=== PATIENT | male | born 1925 | race Caucasian/White ===

== ENCOUNTER → 2016-11-29 | Outpatient (CLI) | payer OTHER, BC ==
[~2016-11-29] MED LIST: ALDACTONE25 MG PO; ALTACE PO; ALTACE5 M1 PO; ASPIR 8181 MG PO; ASPIRIN325 PO; COLACE 100 MG100 MG PO; COREG PO; COREG3.125 MG PO; COUMADIN 3 MG TA3 MG PO; GLUCOSAMINE CH1 EAC7 PO; IRON325 PO; MEDROLDOSEPACK PO; NOHOMEMEDICATIONS; NORCO 7.5-3251 EACH PO; OXYCODONE HCL5 M1 PO; PENICILLIN VK500 MG PO; PLAVIX 75 MG TA75 MG PO; PRILOSEC 20 MG20 MG PO; ZESTRIL2.5 MG PO; ZOCOR 20 MG TAB20 M1 PO; ZOCOR40 MG PO
--- NOTE | ~2016-11-29 | 2DMMODE ---
[facility] [address] [email or web address] [address] 2 D/M-MODE ECHOCARDIOGRAM Name: ISA FERNANDEZ Room #: REG [facility]#: [id number] Admission: 11/29/16 Attend Phys: Darin Gauthier MD Discharge: Date of : [birth year] Date of Service: 11/29/[address] [facility] Report #: [id number] THIS REPORT FOR: //name// APPROVED REPORT Study performed: 11/29/2016 08:39:17 EXAM: Comprehensive 2D, Doppler, and color-flow Echocardiogram Patient Location: Out-Patient Room #: Echo lab Status: routine BSA: 2.08 HR: 58 bpm BP: 114/64 mmHg Other Information Study Quality: Good Indications CAD Hypertension/HDD HLP. 2D Dimensions RVDd: 42.48 mm LVEF(%): 31.39 (>50%) IVSd: 8.76 (7-11mm) LVOT Diam: 23.98 (18-24mm) LVDd: 55.83 mm PWd: 7.88 (7-11mm) Ascending Ao: 33.70 (22-36mm) LVDs: 47.45 (25-40mm) Aortic Root: 37.34 mm IVC: 18.00 mm Carranza's LVEF: 31.39 % Volumes Left Atrial Volume (Systole) Single Plane 4CH: 58.98 mL Single Plane 2CH: 74.95 mL LA ESV Index: 36.00 mL/m2 Aortic Valve AoV Peak Rashad.: 1.21 m/s AO Peak Gr.: 5.81 mmHg LVOT Max P.79 mmHg LVOT Max V: 0.97 m/s CHANDLER Vmax: 3.65 cm2 AI Vmax: 4.64 m/s AI Saunders: 1.66 m/s2 AI PHT: 810.36 ms [facility] [email or web address] [address] 2 D/M-MODE ECHOCARDIOGRAM Name: ISA FERNANDEZ Room #: [facility].#: [id number] Admission: 11/29/16 Attend Phys: Darin Gauthier MD Discharge: Date of : [birth year] Date of Service: 11/29/[address] [facility] Report #: [id number] Mitral Valve E/A Ratio: 1.2 MV Decel. Time: 214.13 ms MV E Max Rashad.: 0.65 m/s MV A Rashad.: 0.56 m/s MV PHT: 62.10 ms IVRT: 258.36 ms Pulmonary Valve PV Peak Rashad.: 0.87 m/s PV Peak Gr.: 3.02 mmHg KY End Vmax: 0.92 m/s Pulmonary Vein P Vein S: 0.60 m/s P Vein A: 0.19 m/s P Vein D: 0.39 m/s P Vein A Dur.: 147.6 msec P Vein S/D Ratio: 1.54 Tricuspid Valve RAP Estimate: 5.00 mmHg Left Ventricle Left ventricle is at the upper limits of normal. There is moderate global hypokinesis of the left ventricle. There is moderate hypokinesis in the inferior wall. There is normal left ventricular wall thickness. Left ventricular systolic function is moderate to severely decreased. LVEF is 30-35%. Grade II - pseudonormal filling dynamics. Right Ventricle Right ventricle is at the upper limits of normal. The right ventricular systolic function is normal. Atria Left atrium is dilated. Right atrium is dilated. Aortic Valve The aortic valve is normal in structure. Aortic valve is calcified. Mild aortic regurgitation. There is no aortic valvular stenosis. Mitral Valve The mitral valve is normal in structure. Mild mitral regurgitation. No evidence of mitral valve stenosis. Tricuspid Valve [facility] [address] [place] [address] 2 D/M-MODE ECHOCARDIOGRAM Name: ISA FERNANDEZ Room #: REG [facility]#: [id number] Admission: 11/29/16 Attend Phys: Darin Gauthier MD Discharge: Date of : [birth year] Date of Service: 11/29/[address] [facility] Report #: [id number] The tricuspid valve is normal in structure. There is no tricuspid valve regurgitation noted. Pulmonic Valve The pulmonary valve is normal in structure. Mild pulmonic regurgitation. Great Vessels The aortic root is normal in size. IVC is normal in size and collapses >50% with inspiration. Pericardium There is no pericardial effusion. <Conclusion> Left ventricle is at the upper limits of normal. Left ventricular systolic function is moderate to severely decreased. Grade II - pseudonormal filling dynamics. Left atrium is dilated. Right atrium is dilated. Mild aortic regurgitation. Mild mitral regurgitation. <ELECTRONICALLY SIGNED> By: Darin Gauthier MD 11/29/16 1007 1007 1007 Darin Gauthier MD /INF
== END ==
LOC: CV 08:30
DX: I10 Essential (primary) hypertension (principal); I25.10 Atherosclerotic heart disease of native coronary artery without angina pectoris; I34.0 Nonrheumatic mitral (valve) insufficiency; E78.5 Hyperlipidemia, unspecified

== ENCOUNTER 2016-12-06 06:47 | Observation (INO) | payer OTHER, BC ==
[~2016-12-06] VITALS: Ht 182.9 cm; Wt 88.9 kg
--- NOTE | ~2016-12-06 | P ---
[facility] [place] [address] PROCEDURE REPORT Name: ISA FERANNDEZ Room #: 219-P [facility] Gilda MVinh#: [id number] Admission: 12/06/16 Attend Phys: Jostin Don MD Discharge: 12/07/16 Date of : [birth year] Report #: [id number] THIS REPORT FOR: //name// CC: Jostin Hill PROCEDURE: ICD implantation. PREOPERATIVE DIAGNOSIS: Ischemic cardiomyopathy. POSTOPERATIVE DIAGNOSIS: Ischemic cardiomyopathy. HISTORY: The patient is an 89-year-old with history of ischemic cardiomyopathy, has been on optimal medical therapy and his EF is less than 35%. He has class 2 heart failure symptoms, he is here for ICD implantation. ANESTHESIA: The patient underwent MAC anesthesia with no anesthesia related complications. DESCRIPTION OF PROCEDURE: The patient underwent informed consent. We discussed the details of the procedure including the risks, which include but not limited to bleeding, infection, vascular damage, cardiac perforation and pneumothorax. He understood these risks and is willing to proceed. As such, he was brought to the EP laboratory in fasting and sedated state, prepped and draped in a sterile fashion and underwent a venogram showing patency of left axillary vein and received IV antibiotics. Next, 20 mL of lidocaine was injected below the level of left clavicle. Incision was made, pocket was created over the prepectoral fascia and access was obtained once the left axillary vein using the extrathoracic approach with the sheath positioned using the modified Seldinger technique. Next, under fluoroscopy lead was positioned in the right ventricular apex with adequate pacing and sensing thresholds, lead was sutured to the prepectoral fascia and the device was connected and found to be functioning normally. The pocket was irrigated with vancomycin and the pocket was closed in 3 layers and surgical glue was placed to the outer skin layer. The patient awoke neurologically and hemodynamically intact with no complications and no significant bleeding. The implanted device was [employer] model #LW856764J, serial #[id number]. The lead was [employer], model #7122Q, 65 cm, serial #[id number]. This lead demonstrated an R-wave of 11 millivolts, pacing impedance of 560 ohms, pacing threshold 0.5 volts at 0.5 milliseconds. The device was programmed to the VVI 40 mode. The VT zone was set at greater than 220 beats per minute with ATP while charging followed by max output shocks, the VT zone was set at 180 beats per minute with 3 rounds of bursts followed by 3 rounds of ramp followed by max output shocks. CONCLUSIONS: [facility] [address] [place] [address] PROCEDURE REPORT Name: ISA FERNANDEZ Room #: 219-[facility].Rhonda#: [id number] Admission: 12/06/16 Attend Phys: Jostin Don MD Discharge: 12/07/16 Date of : [birth year] Report #: [id number] 1. Successful ICD implantation. 2. Satisfactory ventricular pacing and sensing thresholds. <ELECTRONICALLY SIGNED> By: Jostin Don MD 12/09/16 1105 0938 [id number] Jostin Don MD /nt
--- NOTE | ~2016-12-06 | D ---
[facility] [place] [address] DISCHARGE SUMMARY Name: ISA FERNANDEZ Room #: 219-P [facility] Gilda Mahoney#: [id number] Admission: 12/06/16 Attend Phys: Jostin Don MD Discharge: 12/07/16 Date of : [birth year] Report #: [id number] THIS REPORT FOR: //name// CC: Jostin Hill DISCHARGE DIAGNOSIS: Ischemic cardiomyopathy. PROCEDURES PERFORMED: ICD implantation. HISTORY OF PRESENT ILLNESS: The patient is an 89-year-old with history of ischemic cardiomyopathy, who has been on optimal medical therapy and his EF remains less than 35%. He has class II heart failure symptoms. He was here for ICD implantation for primary prevention of sudden cardiac . The procedure was straightforward without incident. HOSPITAL COURSE: The patient was monitored overnight. Chest x-ray the following day showed stable lead position with no pneumothorax. Device interrogation showed normal device function. The following day, he was doing well without any chest pain or shortness of breath. PHYSICAL EXAMINATION: VITAL SIGNS: Stable on physical. GENERAL: No acute distress. CARDIOVASCULAR: Regular rate and rhythm. LUNGS: Clear to auscultation bilaterally. ABDOMEN: Soft, nontender, nondistended. EXTREMITIES: No clubbing, cyanosis or edema. His incision was healing nicely with no hematoma or bruising. As such, he was deemed stable for discharge home. Discharge instructions were reviewed and followup appointment scheduled for 7-10 days. <ELECTRONICALLY SIGNED> By: Jostin Don MD 12/09/16 1105 0831 0906 Jostin Don MD /nt
[2016-12-06 07:29] LABS: ABSOLUTE NEUTROPHILS 3.2 thou/uL (1.4-8.2); BASOPHILS 0.4 % (0.0-2.0); EOSINOPHILS 2.7 % (0.0-3.0); HEMATOCRIT 39.5 % (42.0-52.0); LYMPHOCYTES 33.7 % (24.0-44.0); MCH 28.8 pg (26.0-34.0); MCHC 32.9 g/dL (28.0-37.0); MCV 87.5 fL (80.0-100.0); MONOCYTES 10.2 % (1.0-8.0); PLATELET COUNT 156 thou/uL (150-400); RBC 4.52 mil/uL (4.50-6.00); RDW 14.8 % (10.5-14.5); WBC 6.1 thou/uL (4.0-11.0)
[2016-12-06 07:30] LABS: MANUAL DIFF NO
[2016-12-06 07:45] LABS: CALCIUM 8.9 mg/dL (8.5-10.1); POTASSIUM 3.7 mmol/L (3.5-5.1)
[2016-12-06 07:46] LABS: INR 1.1; PROTIME 10.4 Seconds (9.3-11.4)
[2016-12-06 07:50] LABS: ALBUMIN 3.6 g/dL (3.4-5.0); TOTAL BILIRUBIN 0.6 mg/dL (<0.1-1.0); TOTAL PROTEIN 7.2 g/dL (6.4-8.2)
[2016-12-06 11:11] VITALS: BP 141/71
[2016-12-06 12:30] VITALS: BP 124/69
[2016-12-06 20:28] VITALS: BP 104/59
[2016-12-07 00:02] VITALS: BP 106/55
[2016-12-07 04:50] VITALS: BP 105/60
[2016-12-07 08:38] VITALS: BP 134/76
[2016-12-07 09:08] VITALS: BP 134/76
== END 2016-12-07 13:26 | disposition home or self-care (01) ==
LOC: CATH 06:47 → 2N 10:50 → CATH 12:40 → 2N 12-07 13:26
PROVIDERS: Internal Medicine Cardiovascular Disease
DX: I25.5 Ischemic cardiomyopathy (principal); I25.10 Atherosclerotic heart disease of native coronary artery without angina pectoris; I10 Essential (primary) hypertension; E78.5 Hyperlipidemia, unspecified; R00.1 Bradycardia, unspecified

== ENCOUNTER → 2017-02-28 | Outpatient (CLI) | payer OTHER, BC | LOC: CAT 06:42 | DX: S72.8X2A Other fracture of left femur, initial encounter for closed fracture (principal); Z47.1 Aftercare following joint replacement surgery; X58.XXXA Exposure to other specified factors, initial encounter; Y93.89 Activity, other specified; Y92.89 Other specified places as the place of occurrence of the external cause; Y99.8 Other external cause status ==

== ENCOUNTER 2017-03-15 05:24 | Inpatient (IN) | payer OTHER, BC ==
[2017-03-09 13:21] LABS: HEMATOCRIT 38.2 % (42.0-52.0); HEMOGLOBIN 12.3 gm/dL (14.0-18.0); MCHC 32.3 g/dL (28.0-37.0); MCV 86.6 fL (80.0-100.0); RBC 4.41 mil/uL (4.50-6.00); RDW 14.6 % (10.5-14.5); WBC 9.1 thou/uL (4.0-11.0)
[2017-03-09 13:27] LABS: URINE BILIRUBIN NEGATIVE (Negative); URINE BLOOD TRACE (Negative); URINE COLOR YELLOW; URINE GLUCOSE-RANDOM* NEGATIVE (Negative); URINE KETONES NEGATIVE (Negative); URINE LEUKOCYTES-REFLEX NEGATIVE (Negative); URINE PROTEIN (DIPSTICK) NEGATIVE (Negative); URINE UROBILINOGEN 0.2 E.U./dl (0.2-1.0)
[2017-03-09 13:29] LABS: ALBUMIN 3.7 g/dL (3.4-5.0); CREATININE 0.9 mg/dL (0.7-1.3); POTASSIUM 4.3 mmol/L (3.5-5.1)
[2017-03-09 13:34] LABS: INR 1.1; PROTIME 10.8 Seconds (9.3-11.4)
[2017-03-15] VITALS (8 sets, daily range): BP systolic 82–114; BP diastolic 33–71
[~2017-03-15] VITALS: Ht 182.9 cm; Wt 86.2 kg
--- NOTE | ~2017-03-15 | O ---
[facility] [place] [address] OPERATIVE REPORT Name: ISA FERNANDEZ Room #: 416-P ADM IN M.R.#: [id number] Admission: 03/15/17 Attend Phys: Ramy Hoover MD Discharge: Date of : [birth year] Report #: [id number] THIS REPORT FOR: //name// CC: Dagoberto Hoover DATE OF SERVICE: 03/15/2017 PREOPERATIVE DIAGNOSIS: Left periprosthetic proximal femur fracture including the lesser trochanter. POSTOPERATIVE DIAGNOSES: 1. Left periprosthetic proximal femur fracture including the lesser trochanter. 2. Intraoperative greater trochanteric fracture. PROCEDURE: 1. Revision left total hip arthroplasty of the femoral stem only. 2. Open reduction and internal fixation left greater and lesser trochanter fractures. SURGEON: Ramy Hoover MD. DISEASE INTERVENTION SPECIALIST: Rosibel Mao PA-C. ANESTHESIA: General endotracheal. INDICATION FOR DISEASE INTERVENTION SPECIALIST: Throughout the case extensive retraction and manipulation of the hip was required and this was afforded to me by my boilermaker's assistant. IMPLANTS: [employer] size 18 x 240 Redapt press fit stem, high offset with a size 32+0 head and a size 5 standard Accord trochanteric sales executive insurance plate with 4 cerclage cables. ESTIMATED BLOOD LOSS: 250 mL. COMPLICATIONS: None. SPECIMENS: None. CONDITION UPON LEAVING THE OPERATING ROOM: Stable. INDICATIONS FOR PROCEDURE: The patient is an 89-year-old gentleman who fell on his left hip and sustained a left periprosthetic proximal femur fracture around a total hip arthroplasty. This fracture mainly involved the lesser trochanter and a CT scan of this was performed showing there to be significant widening of [facility] [address] [place] [address] OPERATIVE REPORT Name: ISA FERNANDEZ Room #: 416-P ADM IN M.R.#: [id number] Admission: 03/15/17 Attend Phys: Ramy Hoover MD Discharge: Date of : [birth year] Report #: [id number] the fracture site as well as instability of the stem. After discussion with him and his family, they elected for revision total hip arthroplasty to include the femur only and cerclage cable. DESCRIPTION OF PROCEDURE: Risks, benefits, alternatives, complications were discussed in detail with the patient including but not limited to risk of anesthesia, risk of damage to nerves or blood vessels, risk for infection, bleeding, risk for leg length discrepancy, instability and need for reoperation. Informed consent was obtained from the patient. The left hip was appropriately marked in the preoperative holding area. IV Ancef was given for preoperative antibiotics. He was brought to the operating room and placed in supine position on operating room table. General endotracheal anesthesia was induced without complication. He was then placed in the right lateral decubitus position with left hip uppermost. Left hip and lower extremity were prepped and draped in normal sterile fashion. Timeout was performed properly identifying the patient and procedure as well as the instrumentation, all in the operating in agreement. The previous scar was used and this was opened with a 10 blade. Dissection was taken down to the fascia with Bovie cautery and deep flaps were developed anteriorly and posteriorly with Richey elevator. Fresh 10 blade was used to make a fascial incision and this was taken proximally and distally with curved Diaz scissors. The posterior tissues were then taken off the proximal femur subperiosteally with Bovie cautery and down to the hip joint itself. Deep retractors were placed and capsule around the hip joint was removed with Bovie cautery. The hip was then dislocated and the femoral head was easily removed. Dissection around the proximal femur was performed with Bovie cautery and the stem was obviously loose. A stem removal tool was then placed on the neck and the stem was back slapped out. While removing the stem, the greater trochanter was fractured off secondary to significant overgrowth of the greater trochanter. After the stem was removed, the greater trochanteric fracture was fixed with a size 5 standard Accord cable sales executive insurance plate with 4 cerclage cables, which easily fixed the greater trochanteric fracture as well as the initial lesser trochanter fracture. After reestablishing the continuity of the femur, this was then sequentially reamed up to a size 18 for a Redapt stem. A trial stem was then placed and this was then trialed with +0, 32 head as well as a -3, 32 head. Intraoperative x-ray was then taken to verify that there was adequate purchase of the stem beyond the fracture as well as reduction of the joint. After this, the trial components were removed. Bony ends were thoroughly irrigated with normal saline and a final size 18 x 240 Redapt stem was seated. This was then trialed with a 32+0 head and a 32-3 head. It was felt that a 32+0 head had better fit and stability. A final size 32+0 head was then placed. The hip was reduced, taken through range of motion, found to be stable, found to have a long leg length on the left compared to the right by about 2 cm, but it was felt that this was acceptable in order to gain stability of the hip joint. After this, a periarticular injection consisting of morphine, ropivacaine, epinephrine and Toradol was placed around the hip. A gram of vancomycin was placed deep in the joint. There really was no posterior capsule to close and so that was left [address] [place] [address] OPERATIVE REPORT Name: JIMISA SARITA Room #: 416-P [facility] IN M.R.#: [id number] Admission: 03/15/17 Attend Phys: Ramy Hoover MD Discharge: Date of : [birth year] Report #: [id number] open. Fascia was closed with 0 Vicryl, skin was closed with 2-0 Vicryl, skin staple and a DREEK dressing was applied. The patient tolerated this procedure well and went to recovery room under care of Anesthesia postoperatively. <ELECTRONICALLY SIGNED> By: Ramy Hoover MD 03/17/17 1013 1347 1411 Ramy Hoover MD /nt
--- NOTE | ~2017-03-15 | HC ---
[facility] [place] [address] CONSULTATION Name: ISA FERNANDEZ Room #: 416-P [facility] IN M.R.#: [id number] Admission: 03/15/17 Attend Phys: Ramy Hoover MD Discharge: 03/18/17 Date of : [birth year] Report #: [id number] THIS REPORT FOR: //name// CC: Dagoberto Hoover DATE OF SERVICE: 03/17/2017 HISTORY OF PRESENT ILLNESS: The patient is an 89-year-old white male with a prior history of a left total hip arthroplasty who sustained a left periprosthetic fracture. The patient underwent revision of left total hip arthroplasty with ORIF. He had had a lesser and greater trochanteric fracture and underwent ORIF of the left lesser and greater trochanteric fractures on 03/15/2017. Postoperatively, he has had some issues with hypotension with close monitoring and also has had anemia with hemoglobin from 12.9 down to 7.5. He is currently being transfused. He is limited to 25 pounds weightbearing left lower extremity. We are seeing him in rehabilitation medicine consultation. PAST MEDICAL HISTORY: Does include ischemic cardiomyopathy, status post ICD, 11/25/2016, history of hypertension, acute renal insufficiency. He has had a prior upper GI bleed with noted stress ulcers, thought to be complicated by Coumadin back in 08/2010. MEDICATIONS: Please see the full medication listing. ALLERGIES: No known drug allergies. SOCIAL HISTORY: Lives independently in a house, 2 steps in. He is . He does have a Life Alert. He does have an involved daughter and son. REVIEW OF SYSTEMS: Did not offer any current complaints of chest pain, shortness of breath or abdominal discomfort. He has some hip pain as expected. No focal extremity pain complaints. PHYSICAL EXAMINATION: GENERAL: He is a pleasant 89-year-old white male in no obvious distress. He is pleasant, alert. VITAL SIGNS: Last recorded temperature is 99.3, pulse 91, respirations 18, blood pressure 93/37, he has been down as low as 80/43 and 79/34. HEENT: Appeared to be benign. EXTREMITIES: Skinning blood through the right forearm. No obvious focal weakness of that right upper extremity with limited testing. Left upper extremity without focal weakness. In his lower extremities, there is no calf swelling. He favors moving that left hip as expected. He can dorsiflex the left ankle, had probably a grade 4-/5. Right lower extremity strength is 4-/5. Tone is intact. He is max assist with sit to stand and is ambulating mod assist [address] [address] CONSULTATION Name: ISA FERNANDEZ Room #: [address] [place] [address] IN M.R.#: [id number] Admission: 03/15/17 Attend Phys: Ramy Hoover MD Discharge: 03/18/17 Date of : [birth year] Report #: [id number] with a front-wheeled walker 1 foot. He is 25 pounds weightbearing. ASSESSMENT: An 89-year-old white male with the following problems: 1. Left periprosthetic fracture with lesser trochanter and greater trochanteric fracture status post revision left total hip arthroplasty with ORIF of the trochanteric fractures, 03/15/2017. 2. Hypotension with monitoring of low blood pressures. 3. Anemia postoperatively. Hemoglobin down to 7.5 with transfusion. 4. Functional mobility and ADL deficits. 5. Ischemic cardiomyopathy with prior ICD. 6. Hypertension. 7. Acute renal insufficiency. 8. Prior history of upper GI bleed with ulcer disease. PLAN: The patient is a candidate for an acute in-hospital inpatient rehabilitation stay. From a preadmission screening perspective: 1. Prior level of function is well delineated above. 2. Expect level of improvement would be for the patient to improve with basic transfers and mobility issues within his limited weightbearing to become modified independent at a wheelchair/walker level. We would anticipate length of stay of probably 2-3 weeks. 3. Evaluation of the patient's risk for clinical complications. He does have multiple medical comorbidities and needs to be closely monitored with his blood pressure and hypertensive issues as well as his anemia. 4. Conditions that caused the need for rehabilitation would be the left periprosthetic hip fracture. 5. Treatments needed would include PT and OT 1 and 1-1/2 hours per day each five days a week throughout the duration of the acute inpatient rehabilitation stay. 6. Anticipated discharge destination would be back to the home setting. 7. We would anticipate home healthcare therapies once the patient is ready for discharge. 8. The patient meets diagnostic criteria for an acute in-hospital inpatient rehabilitation stay. He meets medical necessity criteria and we will need to continue to monitor him regarding blood pressure issues and anemia, pain management issues as well as his significant cardiac history and renal insufficiency. He does have the tolerance for an acute in-hospital inpatient rehabilitation stay and has appropriate discharge goals back to the home setting. <ELECTRONICALLY SIGNED> By: Ronni Arthur MD 03/22/17 1414 [id number] 1519 Ronni Arthur MD /PMT
[2017-03-16] VITALS: BP 80/43
[2017-03-16 04:00] VITALS: BP 79/34
[2017-03-16 06:01] LABS: HEMATOCRIT 24.9 % (42.0-52.0); HEMOGLOBIN 8.2 gm/dL (14.0-18.0); MCH 28.7 pg (26.0-34.0); MCHC 32.9 g/dL (28.0-37.0); MCV 87.3 fL (80.0-100.0); RBC 2.85 mil/uL (4.50-6.00); RDW 14.2 % (10.5-14.5); WBC 9.1 thou/uL (4.0-11.0)
[2017-03-16 08:07] VITALS: BP 87/43
[2017-03-16 14:50] VITALS: BP 92/48
[2017-03-16 16:49] VITALS: BP 98/50
[2017-03-16 20:00] VITALS: BP 102/37
[2017-03-17 04:00] VITALS: BP 95/46
[2017-03-17 06:37] LABS: HEMATOCRIT 22.5 % (42.0-52.0); HEMOGLOBIN 7.5 gm/dL (14.0-18.0); MCH 28.6 pg (26.0-34.0); MCHC 33.2 g/dL (28.0-37.0); MCV 86.2 fL (80.0-100.0); RBC 2.61 mil/uL (4.50-6.00); RDW 14.4 % (10.5-14.5); WBC 10.5 thou/uL (4.0-11.0)
[2017-03-17 10:20] VITALS: BP 97/37
[2017-03-17 12:59] VITALS: BP 100/34; BP 110/60
[2017-03-17 20:03] VITALS: BP 99/48
[2017-03-18 03:23] VITALS: BP 102/48
[2017-03-18 04:00] LABS: HEMATOCRIT 24.6 % (42.0-52.0); HEMOGLOBIN 8.3 gm/dL (14.0-18.0); MCH 29.2 pg (26.0-34.0); MCHC 33.7 g/dL (28.0-37.0); MCV 86.8 fL (80.0-100.0); RBC 2.83 mil/uL (4.50-6.00); RDW 14.6 % (10.5-14.5); WBC 11.5 thou/uL (4.0-11.0)
[2017-03-18] MEDS ORDERED: PERCOCET PO (07:51)
[2017-03-18] MEDS ORDERED: HYDROCODON-ACE1 EAC7 PO (07:51)
[2017-03-18] MEDS ORDERED: NEURONTIN 300300 M1 PO (07:52)
[2017-03-18 08:00] VITALS: BP 108/48
== END 2017-03-18 14:10 | DRG 467 ==
LOC: TBA 05:24 → 4N 05:24 → PRE 05:27 → 4N 11:39 → PRE 14:08 → 4N 03-18 14:10
PROVIDERS: Orthopaedic Surgery
PROC: 0QS704Z Reposition Left Upper Femur with Internal Fixation Device, Open Approach (ICD-10-PCS; principal; 2017-03-15)
PROC: 0SWS0JZ Revision of Synthetic Substitute in Left Hip Joint, Femoral Surface, Open Approach (ICD-10-PCS; 2017-03-15)
PROC: 30233N1 Transfusion of Nonautologous Red Blood Cells into Peripheral Vein, Percutaneous Approach (ICD-10-PCS; 2017-03-17)
DX: S72.122A Displaced fracture of lesser trochanter of left femur, initial encounter for closed fracture (principal); M97.02XA Periprosthetic fracture around internal prosthetic left hip joint, initial encounter; D62 Acute posthemorrhagic anemia; I25.5 Ischemic cardiomyopathy; I10 Essential (primary) hypertension; Z74.09 Other reduced mobility; N28.9 Disorder of kidney and ureter, unspecified; S72.112A Displaced fracture of greater trochanter of left femur, initial encounter for closed fracture; E78.5 Hyperlipidemia, unspecified; W19.XXXA Unspecified fall, initial encounter; G62.9 Polyneuropathy, unspecified; I95.81 Postprocedural hypotension; Z95.0 Presence of cardiac pacemaker; Z73.89 Other problems related to life management difficulty; Y93.89 Activity, other specified; Y92.89 Other specified places as the place of occurrence of the external cause; Y99.8 Other external cause status
CPT/HCPCS: 50010; 50101; 50382; 50414; 50939; 51412; 51771; 53078; 54118; 55389; 56524; 56528; 56530; 57095; 62110; 62900; 70005

== ENCOUNTER 2017-03-18 11:59 | Inpatient (IN) | payer OTHER, BC ==
[~2017-03-18] VITALS: Ht 182.9 cm; Wt 85.5 kg
--- NOTE | ~2017-03-18 | HC ---
[facility] [place] [address] CONSULTATION Name: ISA FERNANDEZ Room #: 503-P ADM IN M.R.#: [id number] Admission: 03/18/17 Attend Phys: Ronni Arthur MD Discharge: Date of : [birth year] Report #: [id number] THIS REPORT FOR: //name// CC: oRnni Hill DATE OF SERVICE: 03/19/2017 ATTENDING PHYSICIAN: Ronni Arthur MD ADAPTIVE PHYSICAL EDUCATOR: Dagoberto Kiran PhD CLINICAL PRESENTATION: The patient is an 89-year-old male admitted to the [facility], rehabilitation unit, for comprehensive inpatient rehabilitation program to improve functional mobility, activities of daily living and self-care and mental status secondary to a 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 Reportedly, he was at his home when he sustained a fall and subsequently injuring his hip and requiring the surgical intervention. 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 A complete description of his medical condition and history can be found in his medical record. Neuropsychological consultation was requested to provide assistance in the assessment of cognitive and emotional status and to provide recommendations and services. Prior to this most recent admission, he is reported to have been living independently in his own home. He has 4 children. Two children live within the [place] area and are described as supportive. He is from his second marriage. The patient is a college graduate. 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 He does not report a history of treatment for substance abuse or mental disorder. TECHNIQUES UTILIZED: Clinical interview, review of medical records, staff consultation and behavioral observation, mini-mental status exam 2 standard version, calibrated ideational fluency assessment (letter and category and brief abstract reasoning test and clock drawing). EXAMINATION FINDINGS: The patient was alert and cooperative with the assessment. He accurately described the reason for his hospitalization. He does not present with aphasia. There is no report of auditory or visual hallucinations. His thoughts are logical and goal oriented. He describes his symptoms to include a mild difficulty with short-term memory. He does not [facility] [address] [place] [address] CONSULTATION Name: ISA FERNANDEZ Room #: 503-P [facility] IN M.R.#: [id number] Admission: 03/18/17 Attend Phys: Ronni Arthur MD Discharge: Date of : [birth year] Report #: [id number] report anxiety or depression. He also does not indicate other problems with attention/concentration or word finding. He describes himself as independent with meeting basic and instrumental activities of daily living prior to his hospitalization. His performance on the MMSE 2 brief version was extremely low with a raw score of 10 and a T score of 13, which is at less than 1 percentile. He was 3 of 3 for initial registration, 4 of 5 for orientation to time and 2 of [address] He was 1 of 3 correct for immediate recall of 3 items after a brief time delay and distraction. His performance on the MMSE 2 standard version was extremely low with a raw score 21 of 30 and a T score of 24, which is less than the 1st percentile. He was 2 of 5 for serial 7s, 2 of 2 for naming, 1 of 1 for repetition, 3 of 3 for auditory comprehension, 1 of 1 for being able to read and follow a single command, 1 of 1 for being able to write a sentence and copy a simple geometric design. Performance in verbal fluency suggests moderate overall dysfunction. Letter fluency was at the 8th percentile with a T score of 36, which is in the mild range of deficit. Category fluency was at the 4th percentile with a T score of 32, which is in the mild to moderate range. Total fluency was a T score of 28, which is at the 1st percentile and suggests a moderate overall level of deficit in letter and category fluency. Brief abstract reasoning test was 1 of 8 suggesting severe deficits in abstract reasoning. His overall performance on the neurobehavioral exam suggests deficits in immediate recall, sustained attention in concentration and executive functioning. Impairment with category and letter fluency often suggest deficits with thought organization and higher level executive functioning. Abstract reasoning is also showing impairment at this time. The patient also is unable to accurately set the hands of a clock at a designated time suggesting deficits in visual-spatial construction and organization. DIAGNOSTIC IMPRESSION: Major neurocognitive disorder, unspecified, without behavior disorder - extent to be determined, likely in the mild to moderate range. RECOMMENDATIONS: The patient will require increased assistance with instrumental activities of daily living upon discharge. Higher level planning and problem solving as well as managing medication, nutrition and finances are suggested. The patient is not reporting the deficits in cognitive functioning that are noted during the assessment. I attempted to contact his son, but was unable to at the time of this report. [facility] [address] [place] [address] CONSULTATION Name: ISA FERNANDEZ Room #: 503-P ADM IN M.R.#: [id number] Admission: 03/18/17 Attend Phys: Ronni Arthur MD Discharge: Date of : [birth year] Report #: [id number] The patient will benefit from a more thorough neuropsych assessment upon discharge to clarify the severity of cognitive deficits. At this time, structure and assistance with discontinuation of driving is recommended. Treatment program for neurocognitive disorder that includes the use of medication to support memory may also be helpful. Thank you very much for allowing me to provide the consultation on this patient. <ELECTRONICALLY SIGNED> By: Dagoberto Kiran, PhD 03/26/17 1521 [id number] Dagoberto Kiran, PhD /nt
--- NOTE | ~2017-03-18 | PLAN ---
[facility] [place] [address] REHAB UNIT PLAN OF CARE Name: ISA FERNANDEZ Room #: 503-P ADM IN M.R.#: [id number] Admission: 03/18/17 Attend Phys: Ronni Arthur MD Discharge: Date of : [birth year] Report #: [id number] THIS REPORT FOR: //name// CC: Ronni Hill DATE OF SERVICE: 03/21/2017 HISTORY OF PRESENT ILLNESS: The patient is seen back today in followup. He is in no distress. Last recorded temperature 98.8, pulse 79, respirations 18, blood pressure 102/51. No calf swelling. Transfers are contact guard assistance. He is working on ambulation 35 feet front-wheeled walker. He is motivated and working on improving his overall function within his weightbearing restrictions. ASSESSMENT: 1. Left periprosthetic fracture with lesser and greater trochanteric fracture status post revision, left total hip arthroplasty with open reduction and internal fixation on 03/15/2017. He is limited to 25 pounds weightbearing left lower extremity. 2. Hypotension with monitoring of the lower blood pressures. Blood pressure appeared better this morning. 3. Postoperative anemia. 4. Ischemic cardiomyopathy. 5. Acute renal insufficiency. 6. History of hypertension. 7. Prior history of upper gastrointestinal bleed with ulcer disease. Last recorded hemoglobin was 8.0. 8. Deep venous thrombosis prophylaxis. [facility] to [facility] with this. He was not discharged to rehab on any type of chemical deep venous thrombosis prophylaxis. PLAN: The overall plan of care is based on the preadmission screening, post-admission physician evaluation and information garnered from therapy assessments. 1. Estimated length of stay is going to be at least 10 days to 2 weeks and likely longer. 2. Medical prognosis is reasonably good. 3. Anticipated interventions includes the interdisciplinary acute inpatient rehabilitation program with goal of maximizing the patient's functional independence, so he can hopefully return back to his prior living situation. He would be involved with PT and OT, rehab nursing will be assisting regarding medication management, skin care prophylaxis, bowel and bladder issues and nursing education. We have asked speech therapy to assist as well. The remediation bioanalytics consultant physicians will continue to follow. 4. Anticipated functional outcomes would be for the patient to become modified [place] [id number] REHAB UNIT PLAN OF CARE Name: ISA FERNANDEZER Room #: 503-P [facility] IN [facility].#: [id number] Admission: 03/18/17 Attend Phys: Ronni Arthur MD Discharge: Date of : [birth year] Report #: [id number] independent with transfers, mobility and ADLs as well as the assessment with cognition to try to return back to the home setting. The goal would be independent at least at the walker level for short distances. 5. Discharge destination would be back to the home setting where he lives in a house alone. 6. Expected therapy by discipline includes PT and OT and speech 1 hour per day each five days a week throughout the duration of the acute inpatient rehabilitation stay. We may be able to wean the speech therapy as the patient improves. <ELECTRONICALLY SIGNED> By: Ronni Arthur MD 03/22/17 1414 [id number] Ronni Arthur MD /[facility]
--- NOTE | ~2017-03-18 | H ---
[facility] [place] [address] HISTORY AND PHYSICAL Name: ISA FERNANDEZ Room #: 503-P ADM IN M.R.#: [id number] Admission: 03/18/17 Attend Phys: Ronni Arthur MD Discharge: Date of : [birth year] Report #: [id number] THIS REPORT FOR: //name// CC: Ronni Hill DATE OF SERVICE: 03/18/2017 HISTORY OF PRESENT ILLNESS: The patient is an 89-year-old white male with a prior history of a left total hip arthroplasty who sustained a left periprosthetic fracture. The patient underwent revision of left total hip arthroplasty with ORIF. He had had a lesser and greater trochanteric fracture and underwent ORIF of the left lesser and greater trochanteric fracture on 03/15/2017. Postoperatively, had some issues with hypotension with close monitoring and he had anemia with hemoglobin from 12.9 down to 7.5. He was transfused. He was limited to 25 pounds weightbearing left lower extremity. He has a prior history of ischemic cardiomyopathy. He was noted to have a significant functional decline from his premorbid status and has now been admitted for acute in-hospital inpatient rehabilitation. PAST MEDICAL HISTORY: Includes ischemic cardiomyopathy, status post ICD. 11/25/2016. He has history of hypertension, acute renal insufficiency. He has had a prior upper GI bleed with noted Stress ulcers thought to be complicated by Coumadin back in 08/2010. MEDICATIONS: Please see the full medication listing. Each of these was individually reconciled and includes vitamins, herbals and supplements. ALLERGIES: No known drug allergies. SOCIAL HISTORY: Lives independently in a house, two steps in. He is . He does have a Life Alert. He also has an involved daughter and son. REVIEW OF SYSTEMS: No current complaints of chest pain, shortness of breath, abdominal discomfort. No focal extremity pain complaints other than some hip discomfort as expected. Did not offer any complaints of headaches or bowel or bladder changes. PHYSICAL EXAMINATION: GENERAL: A pleasant 89-year-old white male in no obvious distress. He was alert, pleasant, appropriate. VITAL SIGNS: Last recorded temperature 97.8, pulse 59, respirations 20, blood pressure 108/48. HEENT: Appeared to be benign. Cranial nerves are grossly intact. Facies are symmetric. CHEST: Sounded clear to auscultation. [facility] [address] [place] [address] HISTORY AND PHYSICAL Name: ISA FERNANDEZ Room #: [facility] IN M.R.#: [id number] Admission: 03/18/17 Attend Phys: Ronni Arthur MD Discharge: Date of : [birth year] Report #: [id number] CARDIAC: Regular rate and rhythm. ABDOMEN: Bowel sounds positive, nontender. GENITOURINARY AND RECTAL: Deferred. EXTREMITIES: He has functional range of motion of both upper extremities with strength grade 4-/5. DTRs are trace to 1 in his lower extremities. There is no focal calf swelling. He has strength to grade 4-/5. He is max assist with sit to stand. ASSESSMENT: An 89-year-old white male with the following problem list: 1. Left periprosthetic fracture with lesser and greater trochanteric fractures status post revision, left total hip arthroplasty with open reduction and internal fixation of the trochanteric fracture is 03/15/2017. He is limited to 25 pounds weightbearing of the left lower extremity. 2. Hypotension with monitoring of low blood pressures. His blood pressures have been down as low as 79/34 prior to his rehabilitation admission. 3. Anemia postoperatively with hemoglobin down to 7.5 for which he received a transfusion. 4. Ischemic cardiomyopathy with prior ICD. 5. Acute renal insufficiency. 6. History of hypertension. 7. Prior history of upper gastrointestinal bleed with ulcer disease. 8. Functional mobility and ADL deficits. PLAN: The patient is admitted for acute in-hospital inpatient rehabilitation. From a postadmission physician evaluation perspective, there are no relevant changes since the preadmission screening. Please see the above review of prior and current medical and functional conditions and comorbidities. Please see the patient's previous and current functional status. As far as risk of complications, the patient has multiple medical comorbidities as noted above. The initial plan of care involves the interdisciplinary acute inpatient rehabilitation program with goal of maximizing the patient's functional independence, so that he can hopefully return back to his prior living situation. Measurable functional goals would be for the patient to become modified independent at least at the wheelchair level utilizing the walker for basic transfers and potentially very short distance ambulation. Prognosis is reasonably good with estimated length of stay probably fairly long depending upon his progress. Potential barriers would include his above noted comorbidities and his decreased functional status and his weightbearing limitations. The patient meets diagnostic criteria for an acute in-hospital inpatient rehabilitation stay. He meets medical necessity criteria and we will have the bridal consultant physicians continue to follow. He does have the tolerance for an [facility] [address] [place] [address] HISTORY AND PHYSICAL Name: ISA FERNANDEZ Room #: 503-P ADM IN M.R.#: [id number] Admission: 03/18/17 Attend Phys: Ronni Arthur MD Discharge: Date of : [birth year] Report #: [id number] acute rehabilitation level of stay and has appropriate discharge goals back to the home setting. <ELECTRONICALLY SIGNED> By: Ronni Arthur MD 03/22/17 1414 1521 1544 Ronni Arthur MD /[facility]
[~2017-03-18 11:59] MED LIST changes: +HYDROCODON-ACE1 EAC7 PO; +NEURONTIN 300300 M1 PO; +PERCOCET PO
[2017-03-18 20:20] VITALS: BP 124/61
[2017-03-19 04:03] LABS: HEMATOCRIT 23.4 % (42.0-52.0); MCH 29.2 pg (26.0-34.0); RBC 2.72 mil/uL (4.50-6.00); RDW 14.6 % (10.5-14.5); WBC 8.5 thou/uL (4.0-11.0)
[2017-03-19 04:21] LABS: CREATININE 0.9 mg/dL (0.7-1.3)
[2017-03-19 07:15] VITALS: BP 107/62
[2017-03-19 22:19] VITALS: BP 99/48
[2017-03-20 07:30] VITALS: BP 107/44
[2017-03-20 20:00] VITALS: BP 102/51
[2017-03-21 19:21] VITALS: BP 98/58
[2017-03-22 08:00] VITALS: BP 122/84
[2017-03-22 08:23] VITALS: BP 105/52
[2017-03-22 19:45] VITALS: BP 109/43
[2017-03-22 20:00] VITALS: BP 86/49
[2017-03-23 07:25] VITALS: BP 109/47
[2017-03-23 19:59] VITALS: BP 87/44
[2017-03-24 08:00] VITALS: BP 105/59
[2017-03-24 20:31] VITALS: BP 108/51
[2017-03-25 08:17] VITALS: BP 108/54
[2017-03-25 20:32] VITALS: BP 108/80
[2017-03-26 07:53] VITALS: BP 104/53
[2017-03-26 20:08] VITALS: BP 108/49
[2017-03-27 08:52] VITALS: BP 112/56
[2017-03-27 19:59] VITALS: BP 101/59
[2017-03-28 08:15] VITALS: BP 97/48
[2017-03-28 21:04] VITALS: BP 101/47
[2017-03-29 08:21] VITALS: BP 110/48
[2017-03-29 19:34] VITALS: BP 100/58
[2017-03-30 08:12] VITALS: BP 107/57
[2017-03-30 19:58] VITALS: BP 88/50
[2017-03-31 08:00] VITALS: BP 114/52
[2017-03-31 17:18] VITALS: BP 112/54
[2017-03-31 20:23] VITALS: BP 108/61
[2017-04-01 07:15] VITALS: BP 118/66
== END 2017-04-01 13:20 | DRG 536 ==
PROVIDERS: Physical Medicine & Rehabilitation
DX: S72.112A Displaced fracture of greater trochanter of left femur, initial encounter for closed fracture (principal); M97.02XA Periprosthetic fracture around internal prosthetic left hip joint, initial encounter; N17.9 Acute kidney failure, unspecified; F01.50 Vascular dementia, unspecified severity, without behavioral disturbance, psychotic disturbance, mood disturbance, and anxiety; I95.9 Hypotension, unspecified; D64.9 Anemia, unspecified; I25.5 Ischemic cardiomyopathy; Z96.642 Presence of left artificial hip joint; I10 Essential (primary) hypertension; X58.XXXA Exposure to other specified factors, initial encounter; Y93.89 Activity, other specified; Y92.89 Other specified places as the place of occurrence of the external cause; Y99.8 Other external cause status
CPT/HCPCS: 10112